=== PATIENT | female | born 1990 | race Caucasian/White ===

== ENCOUNTER 2017-09-10 02:04 | Inpatient (IN) | payer OTHER ==
[~2017-09-10] VITALS: Ht 165.1 cm; Wt 91.6 kg
[2017-09-10] VITALS (32 sets, daily range): BP systolic 97–160; BP diastolic 52–97
[2017-09-10] MEDS ORDERED: PRENATAL TABLE1 EAC3 PO (02:41)
[2017-09-10 09:48] LABS: EOSINOPHIL (%) 0 % (0-5); HEMATOCRIT 30.3 % (36.0-46.0); IMMATURE GRANULOCYTE (%) 0.6 % (0.0-0.7); IMMATURE GRANULOCYTE COUNT 0.1 K/uL; INSTRUMENT ABS NEUTROPHIL CT 20.7 K/uL; LYMPHOCYTE COUNT 0.9 K/uL (1.0-2.8); MCH 22.9 PG (29.0-34.0); MCV 73.9 FL (83-99); MEAN PLAT.VOLUME 12.3 uM^3 (9.5-12.4); MONOCYTE COUNT 1.2 K/uL (0-0.8); NEUTROPHIL (%) 90.5 % (45-76); NEUTROPHIL COUNT 20.7 K/uL (1.8-6.4); PLATELET COUNT 208 K/uL (156-360); RBC DIS.WIDTH-CV 16.6 % (11.8-14.6); RBC DIS.WIDTH-SD 43.8 % (39-53); WHITE BLOOD COUNT 22.9 K/uL (4.1-10.2)
[2017-09-10] MEDS ORDERED: MOTRIN800 MG PO (19:50)
[2017-09-10] MEDS ORDERED: PERCOCET 5/31 TABLET PO (19:50)
[2017-09-11] VITALS (8 sets, daily range): BP systolic 111–128; BP diastolic 56–72
[2017-09-11 06:12] LABS: EOSINOPHIL (%) 0 % (0-5); IMMATURE GRANULOCYTE (%) 0.6 % (0.0-0.7); IMMATURE GRANULOCYTE COUNT 0.1 K/uL; INSTRUMENT ABS NEUTROPHIL CT 20.2 K/uL; LYMPHOCYTE COUNT 0.9 K/uL (1.0-2.8); MCH 22.3 PG (29.0-34.0); MCHC 30.4 G/DL (30.0-36.0); MCV 73.6 FL (83-99); MEAN PLAT.VOLUME 11.8 uM^3 (9.5-12.4); MONOCYTE (%) 3.8 % (3-12); MONOCYTE COUNT 0.8 K/uL (0-0.8); NEUTROPHIL (%) 91.6 % (45-76); NEUTROPHIL COUNT 20.2 K/uL (1.8-6.4); PLATELET COUNT 211 K/uL (156-360); RBC DIS.WIDTH-CV 16.5 % (11.8-14.6); RBC DIS.WIDTH-SD 42.9 % (39-53); RED BLOOD COUNT 3.67 M/uL (3.80-5.20)
[2017-09-12 02:41] VITALS: BP 126/75
[2017-09-12 08:19] VITALS: BP 110/55
[2017-09-12 11:58] VITALS: BP 124/89
[2017-09-12 14:54] VITALS: BP 131/77
[2017-09-13 08:00] VITALS: BP 130/87
== END 2017-09-13 13:22 | disposition home or self-care (01) | DRG 765 ==
LOC: LDRP-OP 02:04 → 2WEST 02:05 → LDRP-OP 10-10 13:50
PROVIDERS: Advanced Practice Midwife; Obstetrics & Gynecology
PROC: 10D00Z1 Extraction of Products of Conception, Low, Open Approach (ICD-10-PCS; principal; 2017-09-10)
PROC: 3E0R3BZ Introduction of Anesthetic Agent into Spinal Canal, Percutaneous Approach (ICD-10-PCS; principal; 2017-09-10)
PROC: 00HU33Z Insertion of Infusion Device into Spinal Canal, Percutaneous Approach (ICD-10-PCS; principal; 2017-09-10)
DX: O62.1 Secondary uterine inertia (principal); O33.0 Maternal care for disproportion due to deformity of maternal pelvic bones; O76 Abnormality in fetal heart rate and rhythm complicating labor and delivery; O77.0 Labor and delivery complicated by meconium in amniotic fluid; Z3A.40 40 weeks gestation of pregnancy; Z37.0 Single live birth; O34.83 Maternal care for other abnormalities of pelvic organs, third trimester; N83.201 Unspecified ovarian cyst, right side; O99.62 Diseases of the digestive system complicating childbirth; K58.9 Irritable bowel syndrome, unspecified
CPT/HCPCS: 85025; 86850; 86900; 86901; C1755; J0595; J1100; J1580; J1885; J2175; J2270; J2274; J2405; J2550; J3010; J7120